=== PATIENT | male | born 1990 | race Caucasian/White ===

== ENCOUNTER 2018-11-12 00:53 | Emergency (ER) | payer BC ==
[2018-11-12] MEDS ORDERED: Acetaminophen TAB* 325 MG PO ONE (03:13)
[2018-11-12] MEDS ORDERED: NS 0.9% 1000 ML** 3,000 ML IV ONE (03:13)
[2018-11-12] MEDS ORDERED: Clindamycin 900 MG IVPREMIX(* 900 MG/50 ML SDV IV ONE (03:14)
[2018-11-12] MEDS ORDERED: Ketorolac INJ* 30 MG/ML 1 ML VIAL IV PUSH ONE (03:14)
[2018-11-12] MEDS ORDERED: Clindamycin 900 MG/D5W BAG(*) 900 MG/50 ML BAG IVPB ONE (03:30)
[2018-11-12 03:57] LABS: ABS Lymphocytes 0.9 10^3/ul (1.0-4.8); ABS Monocytes 0.7 10^3/ul (0-0.8); ABS Neutrophils 6.7 10^3/ul (1.5-7.7); Eosinophil % 0.1 %; Hematocrit 42 % (42-52); Hemoglobin 14.7 g/dL (14.0-18.0); Lymphocyte % 11.1 %; Mean Corpuscular HGB Conc 35 g/dL (31-36); Mean Corpuscular Hemoglobin 30 pg (27-31); Mean Corpuscular Volume 85 fL (80-94); Mean Platelet Volume 8.4 fL (7.4-10.4); Nucleated Red Blood Cells % 0.1; Platelet Count 250 10^3/uL (150-450); Red Blood Count 4.94 10^6 /uL (4.18-5.48); Red Cell Distribution Width 13 % (10-15); White Blood Count 8.3 10^3/uL (3.5-10.8)
[2018-11-12 04:13] LABS: Albumin 4.6 g/dL (3.2-5.2); Albumin/Globulin Ratio 1.5 (1-3); BUN/Creatinine Ratio 16.7 (8-20); C Reactive Protein 35.19 mg/L (<8.01); Calcium 9.4 mg/dL (8.6-10.3); EGFR Non-African American 87.6 (>60); Globulin 3.1 g/dL (2-4); Potassium 4.1 mmol/L (3.5-5.0); Total Bilirubin 0.7 mg/dL (0.2-1.0); Total Protein 7.7 g/dL (6.4-8.9)
[2018-11-12 04:36] LABS: Urine Appearance Clear; Urine Bacteria Absent (Absent); Urine Bilirubin Negative (Negative); Urine Blood 1+ (Negative); Urine Color Yellow; Urine Glucose Negative (Negative); Urine Ketones 1+ (Negative); Urine Nitrite Negative (Negative); Urine Protein Negative (Negative); Urine Red Blood Cell Trace(0-2/hpf) (Absent); Urine Specific Gravity 1.018 (1.010-1.030); Urine Squamous Epithelial Cell Present (Absent); Urine Urobilinogen Negative (Negative); Urine White Blood Cell Trace(0-5/hpf) (Absent)
--- NOTE | 2018-11-12 05:43 | ED ---
Skin Complaint - HPI Summary HPI Summary: This patient is a 28 year old M presenting to [facility] with a chief complaint of scrotum pain since 2 days ago. Pt states he vomited red, gelatinous blood today at 0030. The patient rates the pain 5/10 in severity. Symptoms aggravated by nothing. Symptoms alleviated by nothing. Pt reports left sided CP, lower ABD pain, brief left sided flank pain, fatigue, and nausea. Pt notes he takes depression medication and ibuprofen for pain occasionally. - History of Current Complaint Chief Complaint: EDGeneral Time Seen by Provider: 11/12/18 02:57 Stated Complaint: SPIDER BITE PER PT Hx Obtained From: Patient Onset/Duration: Started Days Ago - 2 Skin Exposure Onset/Duration: Days Ago - 2 Timing: Constant, Lasting Days - 2 Onset Severity: Moderate Current Severity: Moderate Pain Intensity: 5 Pain Scale Used: 0-10 Numeric Aggravating Symptom(s): Nothing Alleviating Symptom(s): Nothing Associated Signs & Symptoms: Nausea, Vomiting, Chest Pain - left sided, Abdominal Pain - lower ABD pain, brief left sided flank pain - Allergy/Home Medications Allergies/Adverse Reactions: Allergies Allergy/AdvReac Type Severity Reaction Status Date / Time Pertussis Vaccines Allergy See Comment Verified 11/12/18 01:00 PMH/Surg Hx/FS Hx/Imm Hx Previously Healthy: No Endocrine/Hematology History: Denies: Hx Diabetes Cardiovascular History: Denies: Hx Hypertension Sensory History: Denies: Hx Deafness Psychiatric History: Reports: Hx Anxiety - Surgical History Surgical History: None Infectious Disease History: No Infectious Disease History: Denies: Traveled Outside the [place] in Last 30 Days - Family History Known Family History: Positive: Hypertension, Other - mental health issues - Social History Alcohol Use: Rare Hx Substance Use: Yes Substance Use Type: Reports: Marijuana Substance Use Comment - Amount & Last Used: rarely Hx Tobacco Use: No Smoking Status (MU): Never Smoked Tobacco Do You Chew or Dip Tobacco: No Have You Chewed or Dipped Tobacco in the LAST YEAR: No Have You Smoked in the Last Year: No Review of Systems Positive: Fatigue - vomited red, gelatinous blood Positive: Chest Pain - left sided Positive: Abdominal Pain - lower ABD pain and left sided flank pain, Vomiting - 4, Nausea Skin: Other - positive - scrotum pain All Other Systems Reviewed And Are Negative: Yes Physical Exam - Summary Physical Exam Summary: VITAL SIGNS: Reviewed. GENERAL: Patient is a well-developed and nourished MALE who is lying comfortable in the stretcher. Patient is not in any acute respiratory distress. HEAD AND FACE: No signs of trauma. No ecchymosis, hematomas or skull depressions. No sinus tenderness. EYES: PERRLA, EOMI x 2, No injected conjunctiva, no nystagmus. EARS: Hearing grossly intact. Ear canals and tympanic membranes are within normal limits. MOUTH: Oropharynx within normal limits. NECK: Supple, trachea is midline, no adenopathy, no JVD, no carotid bruit, no c- spine tenderness, neck with full ROM CHEST: Symmetric, no tenderness at palpation LUNGS: Clear to auscultation bilaterally. No wheezing or crackles. CVS: Regular rate and rhythm, S1 and S2 present, no murmurs or gallops appreciated. ABDOMEN: Soft, non-tender. No signs of distention. No rebound no guarding, and no masses palpated. Bowel sounds are normal. EXTREMITIES: FROM in all major joints, no edema, no cyanosis or clubbing. NEURO: Alert and oriented x 3. No acute neurological deficits. Speech is normal and follows commands. SKIN: Scrotum is erythematous and tender, warm without focal colitis. No swelling, lesions, or discharge. Dry and warm Triage Information Reviewed: Yes Vital Signs On Initial Exam: Initial Vitals Temp Pulse Resp BP Pulse Ox 100.4 F 106 16 148/96 96 11/12/18 00:55 11/12/18 00:55 11/12/18 00:55 11/12/18 00:55 11/12/18 00:55 Vital Signs Reviewed: Yes Diagnostics - Vital Signs Vital Signs Temp Pulse Resp BP Pulse Ox 11/12/18 03:09 88 95 11/12/18 03:08 84 134/79 95 11/12/18 00:55 100.4 F 106 16 148/96 96 - Laboratory Lab Results: Lab Results 11/12/18 11/12/18 11/12/18 Range/Units 03:45 03:45 03:45 WBC 8.3 (3.5-10.8) 10^3/uL RBC 4.94 (4.18-5.48) 10^6 /uL Hgb 14.7 (14.0-18.0) g/dL Hct 42 (42-52) % MCV 85 (80-94) fL MCH 30 (27-31) pg MCHC 35 (31-36) g/dL RDW 13 (10-15) % Plt Count 250 (150-450) 10^3/uL MPV 8.4 (7.4-10.4) fL Neut % (Auto) 80.4 % Lymph % (Auto) 11.1 % [place] % (Auto) 8.0 % Eos % (Auto) 0.1 % Baso % (Auto) 0.4 % Absolute Neuts (auto) 6.7 (1.5-7.7) 10^3/ul Absolute Lymphs (auto) 0.9 L (1.0-4.8) 10^3/ul Absolute Monos (auto) 0.7 (0-0.8) 10^3/ul Absolute Eos (auto) 0.0 (0-0.6) 10^3/ul Absolute Basos (auto) 0.0 (0-0.2) 10^3/ul Absolute Nucleated RBC 0.0 10^3/ul Nucleated RBC % 0.1 Sodium 134 L (135-145) mmol/L Potassium 4.1 (3.5-5.0) mmol/L Chloride 102 (101-111) mmol/L Carbon Dioxide 24 (22-32) mmol/L Anion Gap 8 (2-11) mmol/L BUN 17 (6-24) mg/dL Creatinine 1.02 (0.67-1.17) mg/dL Est GFR ( Amer) 106.0 (>60) Est GFR (Non-Af Amer) 87.6 (>60) BUN/Creatinine Ratio 16.7 (8-20) Glucose 106 H (70-100) mg/dL Lactic Acid 0.8 (0.5-2.0) mmol/L Calcium 9.4 (8.6-10.3) mg/dL Total Bilirubin 0.70 (0.2-1.0) mg/dL AST 33 (13-39) U/L ALT 49 (7-52) U/L Alkaline Phosphatase 77 (34-104) U/L Troponin I 0.00 (<0.04) ng/mL C-Reactive Protein 35.19 H (<8.01) mg/L Total Protein 7.7 (6.4-8.9) g/dL Albumin 4.6 (3.2-5.2) g/dL Globulin 3.1 (2-4) g/dL Albumin/Globulin Ratio 1.5 (1-3) Urine Color Urine Appearance Urine pH (5-9) Ur Specific [place] (1.010-1.030) Urine Protein (Negative) Urine Ketones (Negative) Urine Blood (Negative) Urine Nitrate (Negative) Urine Bilirubin (Negative) Urine Urobilinogen (Negative) Ur Leukocyte Esterase (Negative) Urine WBC (Auto) (Absent) Urine RBC (Auto) (Absent) Ur Squamous Epith Cells (Absent) Urine Bacteria (Absent) Urine Glucose (Negative) 11/12/18 Range/Units 03:53 WBC (3.5-10.8) 10^3/uL RBC (4.18-5.48) 10^6 /uL Hgb (14.0-18.0) g/dL Hct (42-52) % MCV (80-94) fL MCH (27-31) pg MCHC (31-36) g/dL RDW (10-15) % Plt Count (150-450) 10^3/uL MPV (7.4-10.4) fL Neut % (Auto) % Lymph % (Auto) % [place] % (Auto) % Eos % (Auto) % Baso % (Auto) % Absolute Neuts (auto) (1.5-7.7) 10^3/ul Absolute Lymphs (auto) (1.0-4.8) 10^3/ul Absolute Monos (auto) (0-0.8) 10^3/ul Absolute Eos (auto) (0-0.6) 10^3/ul Absolute Basos (auto) (0-0.2) 10^3/ul Absolute Nucleated RBC 10^3/ul Nucleated RBC % Sodium (135-145) mmol/L Potassium (3.5-5.0) mmol/L Chloride (101-111) mmol/L Carbon Dioxide (22-32) mmol/L Anion Gap (2-11) mmol/L BUN (6-24) mg/dL Creatinine (0.67-1.17) mg/dL Est GFR ( Amer) (>60) Est GFR (Non-Af Amer) (>60) BUN/Creatinine Ratio (8-20) Glucose (70-100) mg/dL Lactic Acid (0.5-2.0) mmol/L Calcium (8.6-10.3) mg/dL Total Bilirubin (0.2-1.0) mg/dL AST (13-39) U/L ALT (7-52) U/L Alkaline Phosphatase (34-104) U/L Troponin I (<0.04) ng/mL C-Reactive Protein (<8.01) mg/L Total Protein (6.4-8.9) g/dL Albumin (3.2-5.2) g/dL Globulin (2-4) g/dL Albumin/Globulin Ratio (1-3) Urine Color Yellow Urine Appearance Clear Urine pH 6.0 (5-9) Ur Specific [place] 1.018 (1.010-1.030) Urine Protein Negative (Negative) Urine Ketones 1+ A (Negative) Urine Blood 1+ A (Negative) Urine Nitrate Negative (Negative) Urine Bilirubin Negative (Negative) Urine Urobilinogen Negative (Negative) Ur Leukocyte Esterase Negative (Negative) Urine WBC (Auto) Trace(0-5/hpf) (Absent) Urine RBC (Auto) Trace(0-2/hpf) (Absent) Ur Squamous Epith Cells Present A (Absent) Urine Bacteria Absent (Absent) Urine Glucose Negative (Negative) Result Diagrams: 11/12/18 03:45 11/12/18 03:45 Lab Statement: Any lab studies that have been ordered have been reviewed, and results considered in the medical decision making process. Course/Dx - Course Course Of Treatment: This patient is a 28 year old M presenting to [facility] with a chief complaint of scrotum pain since 2 days ago. Pt states he vomited red, gelatinous blood today at 0030. The patient rates the pain 5/10 in severity. Symptoms aggravated by nothing. Symptoms alleviated by nothing. Pt reports left sided CP, lower ABD pain, brief left sided flank pain, fatigue, and nausea. Pt notes he takes depression medication and ibuprofen for pain occasionally. Physical exam shows scrotum is erythematous and tender, warm without focal colitis. There is no swelling, lesions, or discharge. Lab results show Absolute lymphs 0.9, sodium 134, glucose 106, C-reactive protein 35.19, urine ketones 1+ A, urine blood 1+ A, Ur squamous epith cells present A. During ED course, the pt was given Tylenol, Cleocin, Toradol, and fluids. Dx is cellulitis of scrotum. Pt is agreeable to discharge. Pt was told to follow up with a primary care provider within 1-2 days and to return to the ED for any new or worsening symptoms. - Diagnoses Provider Diagnoses: Cellulitis of scrotum Discharge - Sign-Out/Discharge Documenting (check all that apply): Patient Departure - discharge Patient Received Moderate/Deep Sedation with Procedure: No - Discharge Plan Condition: Stable Disposition: HOME Prescriptions: Clindamycin Cap(NF) [Clindamycin Cap 300 mg Cap(NF)] 300 mg PO Q6H #30 cap Ibuprofen TAB* [Motrin TAB* 800 MG] 800 mg PO Q6H PRN #30 tab PRN Reason: Pain Or Fever Patient Education Materials: Cellulitis (ED) Referrals: No Primary Care Phys,NOPCP [Primary Care Provider] - [facility] [Outside] - 1 Day Additional Instructions: Follow up with a primary care provider within 1-2 days. Return to the ED for any new or worsening symptoms. - Attestation Statements Document Initiated by Maryibe: Yes Documenting Scribe: Samuel Canas Provider For Whom Nik is Documenting (Include Credential): Dr. Shahab Sung MD Scribe Attestation: I, ara Birminghamed for Dr. Shahab Sung MD on 11/12/18 at 0639. Status of Scribe Document: Ready
[2018-11-12 06:03] VITALS: BP 133/77
== END 2018-11-12 06:00 | disposition home or self-care (01) ==
LOC: ED 00:53
DX: N49.2 Inflammatory disorders of scrotum (principal); Z88.7 Allergy status to serum and vaccine
CPT/HCPCS: 36415; 80053; 81003; 81015; 83605; 84484; 85025; 86140; 87040; 87086; 96361; 96365; 96375; 99283; A9270-GY; J1885

== ENCOUNTER 2019-05-30 07:12 | Day surgery (SDC) | payer OTHER ==
[~2019-05-30 07:12] MED LIST: Buffered Lidocaine 1% SYRIN* 1 ML/SYRINGE INTRADERM ONE; Lactated Ringers 1000 ML Bag* 1,000 ML IV SCH
[2019-05-30] MEDS ORDERED: fentaNYL* 50 MCG/ML 2 ML VIAL (100 MCG VIAL) ONE (08:00)
[2019-05-30] MEDS ORDERED: Midazolam* 1 MG/ML 2 ML VIAL (2 MG) ONE (08:00)
[2019-05-30] MEDS ORDERED: Buffered Lidocaine 1% SYRIN* 1 ML/SYRINGE INTRADERM ONE (08:05)
[2019-05-30] MEDS ORDERED: ceFAZolin 2 GM PREMIX in ORs 2 GM/50 ML BAG ONE (08:05)
[2019-05-30] MEDS ORDERED: Bupivacaine 0.5%* 50 ML MDV VIAL ONE (08:49)
[2019-05-30] MEDS ORDERED: Naloxone* 0.4 MG/ML 1 ML VIAL IV PRN (08:57)
[2019-05-30] MEDS ORDERED: oxyCODONE TAB* 5 MG TAB PO PRN (08:57)
[2019-05-30] MEDS ORDERED: Rocuronium* 10 MG/ML VIAL ONE ×2 (09:12→09:39)
[2019-05-30] MEDS ORDERED: Ondansetron INJ* 2 MG/ML VIAL ONE (09:22)
[2019-05-30] MEDS ORDERED: Dexamethasone IV* 4 MG/ML 1 ML (4 MG) ONE (09:22)
[2019-05-30] MEDS ORDERED: Propofol* 10 MG/ML 20 ML BTL ONE (09:22)
[2019-05-30] MEDS ORDERED: Sugammadex * 500 MG/5 ML VIAL IV PUSH ONE (09:41)
[2019-05-30] MEDS ORDERED: Ketorolac INJ* 30 MG/ML 1 ML VIAL ONE (09:44)
[2019-05-30] MEDS ORDERED: HYDROmorphone INJ1* 1 MG/ML SYRINGE ONE (10:12)
[2019-05-30] MEDS: HYDROmorphone INJ1* 1 MG/ML SYRINGE IV PRN ×2 (10:15→10:25)
[2019-05-30 11:37] VITALS: BP 123/88
--- NOTE | 2019-05-31 03:07 | OP ---
DATE OF OPERATION: 05/30/19 - SDS DATE OF : 89 SURGEON: Jm Tang MD WET WASH ASSEMBLER: SERJIO Johansen PRE-OP DIAGNOSIS: Umbilical hernia. POST-OP DIAGNOSIS: Umbilical hernia. OPERATIVE PROCEDURE: Repair of umbilical hernia with mesh. INDICATIONS FOR PROCEDURE: Umbilical hernia. Risks included, but not limited to bleeding, infection, injury to intraabdominal contents, recurrence of the hernia were explained. DESCRIPTION OF PROCEDURE: In the operating room in the supine position, with the abdomen prepped and draped in sterile fashion and preoperative antibiotics given, a time-out was performed indicating correct patient, correct procedure. Left upper quadrant 5-mm trocar was placed under direct visualization of the camera and 2 more 8-mm trocars were placed spaced about a hand width apart and the 5-mm trocar was replaced with an 8-mm trocar. The robot was brought in and docked. The peritoneum was taken down exposing the umbilical hernia. Mesh had been placed in the abdomen along with 2 sutures and the defect was closed with a running 0 PDS suture and the Ventralex small patch was tacked up against the defect and sutured in place around the circumference with this 0 PDS suture. The peritoneum was then used to cover this mesh using a running 3-0 V-Loc stitch. EBL was minimal. Hemostasis was intact. The abdomen was scanned. No obvious injuries were noted. Pneumoperitoneum was released from the abdomen after the robot was undocked and the trocars were removed. The skin was closed with 3-0 Monocryl and glue was applied to the skin. He tolerated the procedure well. He was extubated and taken to Recovery in stable condition. [id number]/[facility] #: [id number] [facility]
== END 2019-05-30 11:33 | disposition home or self-care (01) ==
LOC: OR 07:12
PROVIDERS: ATTEND Surgery
DX: K42.9 Umbilical hernia without obstruction or gangrene (principal); F41.8 Other specified anxiety disorders; Z87.891 Personal history of nicotine dependence; Z88.7 Allergy status to serum and vaccine
CPT/HCPCS: C1781; J0690; J1100; J1170; J1885; J2250; J2405; J2704; J3010; J3490